=== PATIENT | female | born 1990 | race Caucasian/White ===

== ENCOUNTER 2020-04-15 17:37 | Emergency (ER) | payer SELFPAY ==
[~2020-04-15] VITALS: Ht 165.1 cm; Wt 72.6 kg
[2020-04-15 18:16] LABS: BILIRUBIN 1+ (Negative); BLOOD 3+ (Negative); COLOR Dark Yellow (Yellow); GLUCOSE Negative (Negative); KETONE 1+ (Negative); LEUKO ESTERASE Trace (Negative); NITRITE Negative (Negative); PH 5.5 (4.5-8.0); SPECIFIC GRAVITY >= 1.030 (1.001-1.030)
[2020-04-15 18:19] LABS: CLARITY Cloudy (Clear)
[2020-04-15 18:27] LABS: BACTERIA 1+; MUCOUS 4+; RBC 0-2 rbc/hpf (0-2); WBC 0-2 wbc/hpf (0-5)
[2020-04-15] MEDS ORDERED: KEFLEX500 M1 PO (19:38)
== END 2020-04-15 19:42 | disposition home or self-care (01) ==
LOC: ED 17:37
PROVIDERS: Nurse Practitioner
DX: N39.0 Urinary tract infection, site not specified (principal); R74.8 Abnormal levels of other serum enzymes; Z88.8 Allergy status to other drugs, medicaments and biological substances